=== PATIENT | male | born 1960 | race Caucasian/White ===

== ENCOUNTER 2016-10-10 19:05 | Emergency (ER) | payer OTHER ==
[~2016-10-10] VITALS: Ht 182.9 cm; Wt 84.4 kg
--- NOTE | 2016-10-10 19:36 | ED PSYCHIATRIC COMPLAINT ---
History of Present Illness General Chief Complaint: ETOH/Drug Related Complaint Stated Complaint: ETOH DETOX, +SI Source: patient, friend Exam Limitations: clinical condition, intoxication Allergies Coded Allergies: No Known Allergies (10/10/16) Reconcile Medications Fluoxetine HCl 20 MG CAPSULE 1 CAP PO DAILY DEPRESSION (Reported) Gabapentin 600 MG TABLET 1 TAB PO BID UNKNOWN (Reported) Mirtazapine 15 MG TABLET 1 TAB PO QPM SLEEP (Reported) Rivaroxaban (Xarelto) 20 MG TABLET 1 TAB PO DAILY BLOOD THINNER (Reported) with food Triage Note: TRIAGE: PT TO ER WITH "GOOD FRIENDS" C/C ETOH DETOX AND FEELING SUICIDAL. LAST DRINK 2 HRS MAIL COURIER. DRANK 2-3 PINTS OF VODKA TODAY. STATES "I'VE BEEN LIVING IN MY CAR" HAD 4 DAYS OF SOBRIETY RECENTLY BUT OTHERWISE HAS BEEN DRINKING DAILY "ON AND OFF FOR THE LAST 4 YEARS". DENIES OTHER SUBSTANCE USE OR ABUSE. REPORTS HX OF SUCIDAL ATTEMPT IN THE PAST BY WALKING IN FRONT OF A TRUCK BUT HE TURNED AWAY BEFORE GETTING STRUCK. "I'VE GONE FOR [place] TIMES BUT UNFORTUNATELY I'M A GOOD SWIMMER". REPORTS SUICIDAL PLAN TODAY WAS TO DRINK AND FREEZE HIMSELF. HAS BEEN LIVING IN TRUCK X 4 DAYS, "STATES I HAVE NO PLACE TO LIVE. I'VE STAYED WITH FRIENDS HERE AND THERE." Triage Nurses Notes Reviewed? yes HPI: Patient is a 56 year old male brought in by friends for evaluation of suicidal ideation and requesting alcohol detox. Patient reports drinking heavily for the past 3-4 days, vodka daily, last drink 1-2 hours prior to arrival. Prior to the last 3-4 days reports that he was sober for several weeks. Patient has been living in his truck, having thoughts of drinking himself to and freezing to . Patient was hospitalized "a couple of dye ago" at [facility] after suicide attempt by jumping in a river. Depression is severe. Patient has not taken his prozac or gabapentin for the past 3-4 days. Denies history of seizures, history of DT's, illicit substance ingestion, pill overdose, hallucinations, recent trauma. (ALEXANDRA DESAI,ORQUIDEA) Vital Signs & Intake/Output Vital Signs & Intake/Output Vital Signs Date Time Temp Pulse Resp B/P Pulse O2 O2 Flow FiO2 Ox Delivery Rate 10/12 0734 96.8 80 16 140/94 10/12 0608 96.6 60 20 143/78 98 Room Air 10/11 2202 97.3 103 20 144/79 94 Room Air 10/11 2002 97.9 79 20 135/78 97 10/11 1950 97.4 91 18 142/92 96 Room Air Room Air 10/11 1949 97.4 91 18 142/92 10/11 1530 97.1 98 20 130/68 10/11 1530 97.1 98 20 130/68 96 Room Air 10/11 1330 98.3 104 20 140/77 10/11 1330 98.3 104 20 140/77 99 Room Air 10/11 1130 97.3 116 20 134/67 10/11 1130 97.3 116 20 134/67 100 Room Air 10/11 0930 97.8 100 20 127/71 10/11 0930 97.8 100 20 127/71 100 Room Air Past History Travel History Traveled to [place] past 21 day No Medical History Any Pertinent Medical History? see below for history Neurological: NONE EENT: NONE Cardiovascular: hypertension Respiratory: NONE Gastrointestinal: NONE Hepatic: NONE Renal: NONE Musculoskeletal: NONE Psychiatric: alcohol dependence, anxiety, depression Endocrine: NONE Blood Disorders: NONE Cancer(s): NONE MANAGER ECONOMIC/Reproductive: NONE Surgical History Surgical History: non-contributory Psychosocial History What is your primary language Maori Tobacco Use: Never used ETOH Use: alcoholic Illicit Drug Use: denies illicit drug use Family History Hx Contributory? Yes (psychiatric) (ORQUIDEA MATHIAS) Review of Systems Review of Systems Constitutional: Denies: chills, fever. EENTM: Reports: no symptoms. Respiratory: Denies: cough, short of breath. Cardiovascular: Denies: chest pain. GI: Denies: abdominal pain, nausea, vomiting. Genitourinary: Reports: no symptoms. Musculoskeletal: Reports: no symptoms. Denies: back pain, neck pain. Skin: Reports: no symptoms. Neurological/Psychological: Reports: see HPI. Denies: headache. Hematologic/Endocrine: Denies: bruising, bleeding. Immunologic/Allergic: Denies: splenectomy. (ORQUIDEA MATHIAS) Physical Exam Physical Exam General Appearance: alert, awake, anxious, intoxicated Head: atraumatic, normal appearance Eyes: Bilateral: normal appearance, PERRL, EOMI. Ears, Nose, Throat: normal pharynx, normal ENT inspection, hearing grossly normal Neck: normal inspection, supple, full range of motion, no midline or paraspinal tenderness Respiratory: normal breath sounds, chest non-tender, no respiratory distress, lungs clear Cardiovascular: regular rate/rhythm Gastrointestinal: soft, non-tender Neurological/Psychiatric: awake, alert, depressed affect with suicidal ideation Appearance/Memory/Insight: disheveled Behavoir/Eye Contact/Speech: cooperative Thoughts/Hallucinations: no apparent hallucination Skin: warm/dry SAD PERSONS Done? unobtained due to conditi (ORQUIDEA MATHIAS) Progress Differential Diagnosis: drug intoxication, drug overdose, drug withdrawal, electrolyte abnormality, encephalitis, IC hem/mass/tumor, suicide attempt, alcohol withdrawal, multitrauma Hand-Off Endorsed To: PAIGE RADER MD Endorsed Time: 0100 Pending: consult (CRISIS) (ORQUIDEA MATHIAS) Plan of Care: Orders Procedure Date/time Status ETHANOL 10/11 1818 Complete Continuous Observation Monitor 10/11 1201 Active Laboratory Tests 10/11/16 1909: Serum Alcohol < 10.0 CIWA monitored, no significant withdrawal symptoms throughout my shift, but patient had elevated alcohol level at that time. Signed out to Dr. Rader at shift change (ORQUIDEA MATHIAS) Hand-Off Endorsed To: ALEX DEL TORO MD Endorsed Time: 0700 Pending: consult (MINDY RICARDO,PAIGE Billy) Comments: 10/11/2016 8:14:39 PM patient signed out to me by Dr. Rader at shift interchange agent. Patient has had an uneventful emergency department stay to the day shift. Patient signed out to Dr. Harvey awaiting placement. (ALEX DEL TORO MD) Hand-Off Endorsed To: ALEX WALLACE DO Endorsed Time: 0700 Pending: consult (BED SEARCH) (DOUG RICARDO,ISAIAH Yip) Departure Departure Disposition: STILL A PATIENT Condition: Stable Clinical Impression Primary Impression: Alcohol intoxication Secondary Impressions: Depression Referrals: CALVIN WASSERMAN MD (PCP/Family) Departure Forms: Customer Survey General Discharge Information (ORQUIDEA MATHIAS) PA/PREDATORY ANIMAL TRAPPER Co-Sign Statement Statement: ED Attending supervision documentation- [] I saw and evaluated the patient. I have also reviewed all the pertinent lab results and diagnostic results. I agree with the findings and the plan of care as documented in the PA's/PREDATORY ANIMAL TRAPPER's documentation. [x] I have reviewed the ED Record and agree with the PA's/PREDATORY ANIMAL TRAPPER's documentation. [] Additions or exceptions (if any) to the PAs/PREDATORY ANIMAL TRAPPER's note and plan are summarized below: [] (MINDY RICARDO,PAIGE Billy) Departure Comments 10/12/16 7:37 am The patient signed out to me by Dr. Harvey. He is pending a bed search. 10/12/16 9:20 AM The patient was accepted for admission to [facility] in [place]. This was for depression and alcohol use. Dr. Ryan Antony accepted the patient (ALEX WALLACE DO) 10/12/16 7:37 am The patient signed out to me by Dr. Harvey. He is pending a bed search. (ALEX WALLACE DO) Statement: ED Attending supervision documentation- [] I saw and evaluated the patient. I have also reviewed all the pertinent lab results and diagnostic results. I agree with the findings and the plan of care as documented in the PA's/PREDATORY ANIMAL TRAPPER's documentation. [x] I have reviewed the ED Record and agree with the PA's/PREDATORY ANIMAL TRAPPER's documentation. [] Additions or exceptions (if any) to the PAs/PREDATORY ANIMAL TRAPPER's note and plan are summarized below: [] (MINDY RICARDO,PAIGE Billy) results and diagnostic results. I agree with the findings and the plan of care as documented in the PA's/PREDATORY ANIMAL TRAPPER's documentation. [x] I have reviewed the ED Record and agree with the PA's/PREDATORY ANIMAL TRAPPER's documentation. [] Additions or exceptions (if any) to the PAs/PREDATORY ANIMAL TRAPPER's note and plan are summarized below: [] (MINDY RICARDO,PAIGE Billy)
[2016-10-10 20:35] LABS: ABSOLUTE BASOPHIL COUNT 0 /CUMM (0.0-0.2); ABSOLUTE EOSINOPHIL COUNT 0.1 /CUMM (0.0-0.7); ABSOLUTE GRANULOCYTE CT 2.8 /CUMM (1.4-6.5); ABSOLUTE MONOCYTE COUNT 0.2 /CUMM (0.10-0.60); BASOPHIL % 0.3 % (0.0-2.0); EOSINOPHIL % 1.7 % (0-5); GRANULOCYTE % 45.9 % (42.2-75.2); HEMATOCRIT 50.6 % (42-52); MEAN CORPUSCULAR HGB 29.1 PG (27.0-31.0); MEAN CORPUSCULAR HGB CONC 33.5 G/DL (33.0-37.0); MEAN CORPUSCULAR VOLUME 86.9 FL (80.0-94.0); MEAN PLATELET VOLUME 8.2 FL (7.4-10.4); PLATELET COUNT 216 /CUMM (130-400); RBC DISTRIBUTION WIDTH 14.6 % (11.5-14.5); RED BLOOD CELL CT 5.82 /CUMM (4.70-6.10); WHITE BLOOD CELL COUNT 6.2 /CUMM (4.8-10.8)
[2016-10-11] MEDS ORDERED: FLUOXETINE HCL20 M2 PO (10:33)
[2016-10-11] MEDS ORDERED: GABAPENTIN600 M1 PO (10:33)
[2016-10-11] MEDS ORDERED: MIRTAZAPINE15 M2 PO (10:34)
[2016-10-11] MEDS ORDERED: XARELTO20 M2 PO (10:34)
--- NOTE | 2016-10-11 12:08 | ED PSYCH CRISIS CONSULTATION ---
See Addendum Crisis Consult Basic Assessment Date of Consult: 10/11/16 Responsible Person/Accompanied By: self Insurance Authorization: Insurance #1: Insurance name: DANITA JEROME Phone number: Policy number: [id number] Group number: Authorization number: ED Provider: Patient's ED Provider: ORQUIDEA MATHIAS Primary Care Physician: Patient's PCP: CALVIN WASSERMAN MD PCP's Current Psychiatrist: none Chief Complaint: ETOH/Drug Related Complaint Patient's Quote: "I was going to drink and freeze to ." Present Illness: Pt is a 56yo male who was brought to the ED by his friends Mike Owen and Mike Sun due to concern of SI and recent relapse on Alcohol. Pt's BAL was 321 at 20:06 on 10/10/16. Pt has been living in his truck the past 4 days and also started drinking a pint daily for the past 4 days after 3 weeks of sobriety. Pt expressed that he was trying to kill himself by drinking and freezing himself to . Pt presents as depressed and expresses feeling hopeless and helpless. Pt identified that he has been homeless on and off for the past 2 years staying with various friends. Pt reports that has 1 prior suicide attempt by jumping in a river and was hospitalized at [facility] in [place] about 1 year ago. Pt also reports 2 prior detoxes last year at [facility] and [facility]. Pt was in out pt tx at [facility] for about 2 months and he stopped going in July due to his new employment as a [employer] in [place] from 5:30am to 8pm at night. Pt reports that he actively participates in AA. Pt is requesting inpt treatment for his depression, suicidal thoughts and alcohol detox. Crisis spoke to Mike Owen who expresses great concern for his friend's emotional state as well as his relapse. He knows him through AA. He would pt to have inpt tx as well. Case reviewed with Dr. Gautam of Psychiatry and pt will be admitted for inpt tx. There are currently no beds on [facility], so a bed search is being done. Patient's Address: [address] [place] [address] Other Phone Number: Who Do You Live With? Other (see notes) (homeless) Family/Informants Interviewed: friend Allergies - Coded Allergies: No Known Allergies (10/10/16) Current Medications - Scheduled Medications Fluoxetine HCl 20 MG CAPSULE 1 CAP PO DAILY DEPRESSION #30 (Reported) Entered as Reported by KIMBERLEE LUA on 10/11/16 1033 Gabapentin 600 MG TABLET 1 TAB PO BID UNKNOWN #60 (Reported) Entered as Reported by KIMBERLEE LUA on 10/11/16 1033 Mirtazapine 15 MG TABLET 1 TAB PO QPM SLEEP #60 (Reported) Entered as Reported by KIMBERLEE LUA on 10/11/16 1034 Rivaroxaban (Xarelto) 20 MG TABLET 1 TAB PO DAILY BLOOD THINNER #30 (Reported ) Entered as Reported by KIMBERLEE LUA on 10/11/16 1034 Laboratory Results: Laboratory Tests 10/10/16 2006: Serum Alcohol 321.0 10/10/16 2006: Anion Gap 15, Estimated GFR > 60, BUN/Creatinine Ratio 14.4, Glucose 84, Calcium 9.2, Magnesium 2.3, Total Bilirubin 0.5, AST 37, ALT 38, Alkaline Phosphatase 64 , Total Protein 8.1, Albumin 4.8, Globulin 3.3, Albumin/Globulin Ratio 1.5, CBC w Diff NO MAN DIFF REQ, RBC 5.82, MCV 86.9, MCH 29.1, RDW 14.6 H, MPV 8.2, Gran % 45.9, Lymphocytes % 48.1, Monocytes % 4.0, Eosinophils % 1.7, Basophils % 0.3, Absolute Granulocytes 2.8, Absolute Lymphocytes 3.0, Absolute Monocytes 0.2, Absolute Eosinophils 0.1, Absolute Basophils 0, PUBS MCHC 33.5, Urine Opiates Screen < 100.00, Methadone Screen < 40, Barbiturate Screen < 60, Ur Phencyclidine Scrn < 6.00, Amphetamines Screen < 100, U Benzodiazepines Scrn < 85, Urine Cocaine Screen < 50, Urine Cannabis Screen < 5.00 Past History Past Medical History Neurological: NONE EENT: NONE Cardiovascular: hypertension Respiratory: NONE Gastrointestinal: NONE Hepatic: NONE Renal: NONE Musculoskeletal: NONE Psychiatric: alcohol dependence, anxiety, depression Endocrine: NONE Blood Disorders: NONE Cancer(s): NONE MANAGER TELEMETRY/Reproductive: NONE Past Surgical History Surgical History: non-contributory Psychosocial History Strengths/Capabilities: Pt engaging and has good insight into his need for tx. He has supportive friends and is active in AA Physical Limitations (Interventions): none reported Psychiatric Treatment History Psych Treatment Psychiatric Treatment Yes Inpatient Treatment Yes Outpatient Treatment Yes Location of Treatment [facility] and [facility] Reason for Treatment Depression Dates of Treatment this past year 2015 Response to Treatment variable Diagnosis by History: Pt reprots deperssion and slcohol use disorder Substance Use/Abuse History Drug Use/Abuse Substances Used/Abused Yes Substance Used/Abused Alcohol First Use in his teens Last Used last night How much used/taken 1 pint How often daily For how long 4 days Route of use po Substance Abuse Treatment Substance Abuse Treatment Past Substance Abuse TX Yes Inpatient Treatment Yes Outpatient Treatment Yes Location of Treatment [facility], [facility] Reason for Treatment Alcohol use Dates of Treatment 2015 Response to Treatment variable Current Mental Status Mental Status Orientation: Person, Place, Situation Affect: Depressed, Hopeless, Sad Speech: WNL Neuro-vegetative: Anhedonia, Appetite Decreased, Concentration Poor, Energy Decreased, Helpless, Loss of Interest, Sleep Disturbance Appearance Appearance- Dress/Hygiene: unkempt, disheveled, good eye contact Behaviors Thought Process: WNL Thought Content: WNL Memory: WNL Insight: WNL SI/HI Risk Assessment Past Suicidal Ideation/Attempts Yes Current Suicidal Ideation/Att Yes Past Homicidal Ideation/Att: No Current Homicidal Ideation/Attempts No Degree of Intent: Made Preparations, Plan, States Intent Danger To: Self Gravely Disabled: Poor Impulse Control Risk Factors: access to lethal means, high anxiety/distress, history of suicide atmpts, SA/MH hospitalized, substance abuse, poor impulse control, lives alone, male, limited support Lethality Ratin PTSD Checklist PTSD Done? patient declined ED Management Sitter: Yes Restraints: No DSM5/PS Stressors/Medical Prob Diagnosis' (DSM 5, Stressors, Medical): Unspecified Depression F32.9, Alc use d/o sev F10.20 hypertension Financial stressors, limited supports, lack of housing Current GAF: 25 Departure Disposition Psych Medical Clearance Date: 10/11/16 Medically Cleared at: 1130 Time Started: 1130 Time Ended: 1200 Psychiatrist Consulted: Dain RICARDO,Edward Date Disposition Established: 10/11/16 Time Disposition Established: 1200 Plan for Disposition - Modality: Inpatient Psychiatry Facility: bed search Rationale for Disposition: safety and stabilization of sx, detox Type of IP Admission: Voluntary Referrals LISY RICARDO,CALVIN (PCP/Family)
--- NOTE | 2016-10-11 14:40 | ED PSY CRISIS COLLATERAL NOTE ---
Collateral Note Collateral Note Family/Inform/[place] Contacts: Mike Owen wouoldleva to know where pt will be admitted. Please call with final dispo.
[2016-10-12 07:34] VITALS: BP 140/94
== END 2016-10-12 09:18 | disposition other institution (70) ==
LOC: ERH 19:05
PROVIDERS: Physician Assistant
DX: F10.129 Alcohol abuse with intoxication, unspecified (principal); F32.9 Major depressive disorder, single episode, unspecified
CPT/HCPCS: 80307; G0463; G0480; J3490